=== PATIENT | female | born 1995 | race Caucasian/White ===

== ENCOUNTER 2018-11-03 15:38 | Emergency (ER) | payer OTHER ==
[~2018-11-03] VITALS: Ht 165.1 cm; Wt 60.0 kg
[2018-11-03 15:43] VITALS: BP 126/66
== END 2018-11-03 19:30 | disposition left against medical advice (07) ==
LOC: ER 15:38
DX: R10.9 Unspecified abdominal pain (principal); Z53.21 Procedure and treatment not carried out due to patient leaving prior to being seen by health care provider